=== PATIENT | female | born 1970 | race Caucasian/White ===

== ENCOUNTER → 2017-01-21 | Outpatient (CLI) | payer OTHER ==
--- NOTE | 2017-01-22 09:26 | MM ---
Reason for exam: screening (asymptomatic). Last mammogram was performed 2 years and 5 months ago. History: Family history of breast cancer in maternal grandmother, breast cancer in paternal grandmother, and breast cancer in sister at age 42. Physical Findings: A clinical breast exam by your physician is recommended on an annual basis and results should be correlated with mammographic findings. MG Screening Mammo w CAD Bilateral CC and MLO view(s) were taken. Prior study comparison: August 23, 2014, bilateral MG diagnostic mammo w CAD [facility]. February 06, 2014, left breast MG diagnostic mammo LT w CAD. The breast tissue is heterogeneously dense. This may lower the sensitivity of mammography. No suspicious abnormality. No significant changes when compared with prior studies. ASSESSMENT: Benign, BI-RAD 2 RECOMMENDATION: Routine screening mammogram of both breasts in 1 year.
== END | disposition home or self-care (01) ==
LOC: RADMAMWWP 06:57
PROVIDERS: ATTEND Family Medicine
DX: Z12.31 Encounter for screening mammogram for malignant neoplasm of breast (principal); Z80.3 Family history of malignant neoplasm of breast

== ENCOUNTER → 2017-02-16 | Outpatient (CLI) | payer OTHER ==
--- NOTE | 2017-02-16 16:11 | CT ---
EXAMINATION TYPE: CT abdomen pelvis wo con DATE OF EXAM: 02/16/2017 COMPARISON: NONE HISTORY: ab distention CT DLP: 1120 mGycm Automated exposure control for dose reduction was used. TECHNIQUE: Helical acquisition of images was performed from the lung bases through the pelvis. FINDINGS: Evaluation of the hollow and solid viscera are limited by lack of intravenous and oral cont rast. LUNG BASES: Minimal bibasilar subsegmental dependent atelectasis is seen. LIVER/GB: There is diffuse hypoattenuation of the hepatic parenchyma approaching criteria for hepatic steatosis, however the liver parenchyma does not yet meet criteria for hepatic steatosis. No intrahe patic biliary ductal dilatation is present. PANCREAS: No significant abnormality is seen. No ductal dilatation. SPLEEN: No significant abnormality is seen. ADRENALS: Adrenal glands are symmetric and maintained adreniform shape without measurable nodule. KIDNEYS: No radiopaque calculi are seen and no hydronephrosis is present. FREE AIR: No free air is visualized ADENOPATHY: None visualized OSSEOUS STRUCTURES: Osseous structures appear intact. BOWEL: No significant abnormality is seen. Small paraesophageal lymph nodes are seen measuring up to 7 mm. High density material is seen adjacent to the esophagus and could be related to inspissated de bris within distal esophageal pulsion diverticula versus calcified adjacent lymph nodes. IMPRESSION: 1. DECOMPRESSION OF THE DISTAL ESOPHAGUS WITH HIGH DENSITY MATERIAL SEEN EITHER ADJACENT TO THE ESOPH PAULO OR LOCATED WITHIN ESOPHAGEAL POSTERIOR DIVERTICULUM. DIRECT VISUALIZATION COULD BE PERFORMED FOR FURTHER EVALUATION IF CLINICALLY INDICATED. 2. SURGICAL ABSENCE OF THE GALLBLADDER. 3. NO ACUTE INTRA-ABDOMINAL PROCESS.
== END | disposition home or self-care (01) ==
LOC: RADCTMAIN 15:40
PROVIDERS: ATTEND Family Medicine
DX: K22.5 Diverticulum of esophagus, acquired (principal); Z90.49 Acquired absence of other specified parts of digestive tract
CPT/HCPCS: 74176

== ENCOUNTER 2017-03-25 09:25 | Day surgery (SDC) | payer OTHER ==
[2017-03-24 08:21] VITALS: BMI 33.6
[~2017-03-25 09:25] MED LIST: LACTATED RINGERS 1,000 ML IV SCH
[2017-03-25 09:41] VITALS: RESP 16; TEMP 97.1
[2017-03-25] MEDS ORDERED: LIDOCAINE 1% 20 ML VIAL (10MG/ML) FOR IV START INTRADERMA ONE (09:41)
[2017-03-25] MEDS ORDERED: PROPOFOL 10 MG/ML 20 ML VIAL IV ONE (10:02)
[2017-03-25] MEDS ORDERED: LIDOCAINE 1% INJ 10MG/ML (20 ML MDV) ONE (10:02)
--- NOTE | 2017-03-25 10:15 | P.OP ---
Date of Procedure: 03/25/17 Preoperative Diagnosis: Gastroesophageal reflux disease Postoperative Diagnosis: Same Procedure(s) Performed: Esophagogastroduodenoscopy with random antrum biopsy Anesthesia: MAC Surgeon: Kalina Bee Pathology: other Condition: stable Disposition: PACU Indications for Procedure: 47 years old female presents with reflux symptoms. Informed consent obtained and patient elected to undergo EGD with possible biopsy. Operative Findings: Mild gastritis Description of Procedure: A timeout was performed to verify the correct patient and correct procedure. Patient was on continuous vitals and pulse ox monitoring throughout the procedure. She was placed in lateral decubitus position and an oral bite block was inserted. A well-lubricated Olympus upper endoscope was passed orally. The esophagus was intubated without difficulty. The vocal cords were visualised and protected at all times. The endoscope was passed beyond the pylorus into the first and second portion of the duodenum. No abnormality was noted in the duodenum mucosa. Two random biopsies were taken from the gastric antrum using cold biopsy forceps. The scope was then retroflexed. No hiatal hernia. No mass, active ulcer or bleeding stigmata noted within the gastric lumen. Mild diffuse gastritis The GE junction is measured at 38 cm from the incisors . No evidence of reflux esophagitis. The endoscope was gradually withdrawn. No abnormality identified in the esophagus. Patient tolerated the procedure well and was taken to post anesthesia care unit in stable condition. FINAL DIAGNOSIS: Mild diffuse gastritis SPECIMEN: Antral biopsy RECOMMENDATION: 1. Avoid NSAIDs 2. If persistent reflux symptoms, consider 24 hr esophageal manometry and motility test Final Pathologic Diagnosis GASTRIC ANTRUM, BIOPSY: MILD CHRONIC GASTRITIS. IMMUNOPEROXIDASE STAIN NEGATIVE FOR HELICOBACTER PYLORI ORGANISMS (CONTROLS APPROPRIATE).
[2017-03-25 10:52] VITALS: BP 132/65; PULSE 60
== END 2017-03-25 11:05 | disposition home or self-care (01) ==
LOC: ORWHC2ENDO 09:25
PROVIDERS: ATTEND Surgery
DX: K21.9 Gastro-esophageal reflux disease without esophagitis (principal); K29.50 Unspecified chronic gastritis without bleeding; K58.9 Irritable bowel syndrome, unspecified; I10 Essential (primary) hypertension; F41.9 Anxiety disorder, unspecified; G25.81 Restless legs syndrome; Z91.048 Other nonmedicinal substance allergy status; Z79.1 Long term (current) use of non-steroidal anti-inflammatories (NSAID); Z79.899 Other long term (current) drug therapy; Z87.891 Personal history of nicotine dependence; Z98.51 Tubal ligation status; Z80.3 Family history of malignant neoplasm of breast
CPT/HCPCS: 43239 ×2; 81025; 88305; 88342; J2001; J2704

== ENCOUNTER → 2018-04-19 | Outpatient (CLI) | payer OTHER ==
--- NOTE | 2018-04-21 11:00 | MM ---
Reason for exam: screening (asymptomatic). Last mammogram was performed 1 year and 3 months ago. History: Family history of breast cancer in maternal grandmother, breast cancer in paternal grandmother, and breast cancer in sister at age 42. Physical Findings: A clinical breast exam by your physician is recommended on an annual basis and results should be correlated with mammographic findings. MG Screening Mammo w CAD Bilateral CC and MLO view(s) were taken. Prior study comparison: January 21, 2017, bilateral MG screening mammo w CAD. August 23, 2014, bilateral MG diagnostic mammo w CAD [facility]. The breast tissue is heterogeneously dense. This may lower the sensitivity of mammography. No significant changes when compared with prior studies. ASSESSMENT: Negative, BI-RAD 1 RECOMMENDATION: Routine screening mammogram of both breasts in 1 year.
== END | disposition home or self-care (01) ==
LOC: RADMAMWWP 14:51
DX: Z12.31 Encounter for screening mammogram for malignant neoplasm of breast (principal)
CPT/HCPCS: 77067

== ENCOUNTER → 2019-12-15 | Outpatient (CLI) | payer OTHER ==
--- NOTE | 2019-12-15 12:51 | CONS ---
CONSULTATION DATE OF SERVICE: 12/15/2019. A 49-year-old lady who has been evaluated in the [facility] for multiple awakenings from sleep and significant excessive daytime sleep. HISTORY OF PRESENT ILLNESS/SLEEP-WAKE EVALUATION: Patient's usual sleep schedule from 9-12 midnight until 730 - 10:00 am. She does have problems with falling asleep, has TV set in bedroom. She sleeps on the back, on side position positions by herself, sometimes wakes up from snoring. Patient wakes up from sleep up to 8 times with up to 4 episodes of nocturia at night. She has episodes of restless legs, grinding teeth, panic attack. In the morning patient wakes up tired, has trouble to pay attention, falling asleep during the day, worries about her sleep, has problems with memory, concentration, irritability, anxiety, claustrophobia. Occasionally, she takes naps and she may have vivid dreams during naps. She may start to see her dreams while falling asleep at night, right after falling asleep. She also may have episodes of some weakness in the body during strong emotions including laughing during the daytime, which may indicate possibility of cataplexy. [place] Sleepiness Scale is in extremely high range of 19. PAST MEDICAL HISTORY: Positive for post traumatic stress disorder, neck problems. PAST SURGICAL HISTORY: Neck fusion, appendectomy, tubal ligation. SOCIAL HISTORY: Smoking history in the past for 20 years 2 cigarettes a day; quit about 10 years ago. Alcohol consumption occasional. FAMILY HISTORY: Hypertension, heart problems, hyperlipidemia, arthritis, sleep apnea, pneumonia, cancer, thyroid problems, diabetes, restless legs. REVIEW OF SYSTEMS: Restless leg symptoms, multiple awakenings from sleep, sleepiness during the day, episodes of panic attacks, anxiety. During physical exam, lady without distress, BP 119/74, HR 70, RR 16, height 5, 7-1/2, weight 235.6, temperature 98.3, oxygen saturation at room air 97%. OROPHARYNX: Extremely low position of soft palate, Mallampati IV, wide neck 16 inches in circumference/ ABDOMEN: Obese. NECK: Supple, no JVD. Thyroid is not palpable. LUNGS: Clear to percussion and to auscultation. Good air exchange. No wheezing or rhonchi. HEART: S1, S2 regular. No murmurs, gallops, or rubs. EXTREMITIES: No clubbing or cyanosis. SUPERVISORY CIVIL ENGINEER: Awake, alert, and oriented X3. Cranial nerves 2 to 7 intact. There is no fasciculation or atrophy. noted. No focal deficits observed. IMPRESSION: 1. Snoring, multiple awakenings from sleep, extremely low position of soft palate. Wide neck. Obstructive sleep apnea-hypopnea syndrome. 2. Significant excessive daytime sleepiness with [place] Sleepiness Scale 19. Positive history of hypnagogic hallucinations and questionable cataplexy dictating necessity to include narcolepsy in the differential diagnosis. 3. Obesity, body mass index 36.2. 4. Status post neck fusion. 5. History of posttraumatic stress disorder. 6. Status post appendectomy. 7. Status post tubal ligation. PLAN: 1. Polysomnography for evaluation of patient's breathing during sleep. 2. CPAP/BiPAP titration if sleep study confirms obstructive sleep apnea-hypopnea syndrome. 3. Preferable position during sleep on the side. 4. No driving if patient feels any sleepiness. 5. Multiple sleep latency testing. Sleep study negative for obstructive sleep apnea- hypopnea syndrome. 6. I will see patient for follow up visit to explain results of testing and following plan. Thank you very much for referring this patient for consultation. Sincerely, Jesus Castro MD, PhD, FAASM Diplomat of [place] [employer] [place] [employer] Specialist of [facility] [place] MMODL / CONNERN: [id number] /
== END | disposition home or self-care (01) ==
LOC: SLEEP 11:11
PROVIDERS: ATTEND Internal Medicine
DX: G47.33 Obstructive sleep apnea (adult) (pediatric) (principal); E66.9 Obesity, unspecified; Z68.36 Body mass index [BMI] 36.0-36.9, adult; Z98.1 Arthrodesis status; Z90.49 Acquired absence of other specified parts of digestive tract; Z86.59 Personal history of other mental and behavioral disorders; Z98.51 Tubal ligation status
CPT/HCPCS: 99211

== ENCOUNTER → 2020-10-25 | Outpatient (CLI) | payer OTHER ==
--- NOTE | 2020-10-29 08:43 | MM ---
Reason for exam: screening (asymptomatic). Last mammogram was performed 2 years and 6 months ago. History: Family history of breast cancer in maternal grandmother, breast cancer in paternal grandmother, and breast cancer in sister at age 42. Physical Findings: A clinical breast exam by your physician is recommended on an annual basis and results should be correlated with mammographic findings. MG Screening Mammo w CAD Bilateral CC and MLO view(s) were taken. Prior study comparison: April 19, 2018, bilateral MG screening mammo w CAD. January 21, 2017, bilateral MG screening mammo w CAD. The breast tissue is heterogeneously dense. This may lower the sensitivity of mammography. No significant changes when compared with prior studies. ASSESSMENT: Benign, BI-RAD 2 RECOMMENDATION: Routine screening mammogram of both breasts in 1 year.
== END | disposition home or self-care (01) ==
LOC: RADMAMWWP 12:47
PROVIDERS: ATTEND Nurse Practitioner Acute Care
DX: Z12.31 Encounter for screening mammogram for malignant neoplasm of breast (principal); Z80.3 Family history of malignant neoplasm of breast
CPT/HCPCS: 77067

== ENCOUNTER → 2021-10-28 | Outpatient (CLI) | payer OTHER ==
--- NOTE | 2021-10-29 14:42 | MM ---
Reason for Exam: Screening (asymptomatic). Last screening mammogram was performed 12 month(s) ago. Patient History: Menarche at age 15. First Full-Term at age 21. Paternal grandmother had breast cancer. Maternal grandmother had breast cancer. Sister had breast cancer, age 42. Last menstrual period: 10/09/2021 Risk Values: Andie 5 year model risk: 1.7%. NCI Lifetime model risk: 15.1%. Prior Study Comparison: 01/21/2017 Bilateral Screening Mammogram, [facility]. 04/19/2018 Bilateral Screening Mammogram, [facility]. 10/25/2020 Bilateral Screening Mammogram, [facility]. Tissue Density: The breast tissue is heterogeneously dense. This may lower the sensitivity of mammography. Findings: Analyzed By CAD. No suspicious groups of microcalcifications, spiculated or lobular masses, architectural distortion or other secondary signs of malignancy are mammographically apparent. Overall Assessment: Benign, BI-RAD 2 Management: Screening Mammogram of both breasts in 1 year. A negative mammogram report should not preclude additional follow up of suspicious palpable abnormalities. Patient should continue monthly self breast exam. A clinical breast exam by your physician is recommended on an annual basis and results should be correlated with mammographic findings. Electronically signed and approved by: Maxx Horne D.O. Radiologis
== END | disposition home or self-care (01) ==
LOC: RADMAMWWP 14:33
DX: Z12.31 Encounter for screening mammogram for malignant neoplasm of breast (principal); Z78.0 Asymptomatic menopausal state; Z80.3 Family history of malignant neoplasm of breast
CPT/HCPCS: 77067

== ENCOUNTER → 2021-11-20 | Outpatient (CLI) | payer OTHER ==
[2021-11-20 19:41] LABS: Basophils # (A) 0.07 X 10*3/uL (0.00-0.10); Eosinophils % (A) 2.9 %; HCT 40.2 % (37.2-46.3); HGB 13.1 g/dL (12.0-15.0); Immature Grans, Automated 0.3 %; Lymphocytes # (A) 2.17 X 10*3/uL (0.90-5.00); Lymphocytes % (A) 31.4 %; MCH 28.7 pg (27.0-32.0); MCHC 32.6 g/dL (32.0-37.0); MCV 88.2 fL (80.0-97.0); Mean Platelet Volume 9.4 fL (9.5-12.2); Monocytes # (A) 0.59 X 10*3/uL (0.20-1.00); Monocytes % (A) 8.6 %; NRBC Per 100 WBC 0 /100 WBCS (0.0-0.0); Neutrophils # (A) 3.85 X 10*3/uL (1.80-7.70); Neutrophils % (A) 55.8 %; Platelet Count 338 X 10*3/uL (140-440); RBC 4.56 X 10*6/uL (4.10-5.20); RDW 12.6 % (11.5-14.5)
== END | disposition home or self-care (01) ==
LOC: LABPAT 10:37
PROVIDERS: ATTEND Obstetrics & Gynecology Obstetrics
DX: Z01.812 Encounter for preprocedural laboratory examination (principal); N92.0 Excessive and frequent menstruation with regular cycle; D25.9 Leiomyoma of uterus, unspecified
CPT/HCPCS: 85025

== ENCOUNTER 2021-12-02 06:13 | Day surgery (SDC) | payer OTHER ==
[2021-11-28 13:02] VITALS: BMI 33.2
[~2021-12-02 06:13] MED LIST changes: -LACTATED RINGERS 1,000 ML IV SCH; +Pre Op ABX Message 1 EACH MISC MISCELLANE ONE
[2021-12-02] MEDS ORDERED: HYDROmorphone 0.5 MG/0.5 ML SYRINGE IVP PRN (06:21)
[2021-12-02] MEDS ORDERED: LIDOCAINE 1% (10MG/ML) FOR IV START INTRADERMA PRN (06:21)
[2021-12-02] MEDS ORDERED: DEXAMETHASONE SOD PHOSPHATE 4 MG/ML 1 ML VIAL IV ONE (06:21)
[2021-12-02] MEDS ORDERED: LACTATED RINGERS 1,000 ML IV SCH (06:21)
[2021-12-02] MEDS ORDERED: ONDANSETRON 4 MG/2 ML VIAL IVP ONE (06:21)
[2021-12-02] MEDS ORDERED: SCOPOLAMINE 1 MG/72 HR PATCH TRANSDERM ONE (06:21)
[2021-12-02] MEDS ORDERED: LIDOCAINE 2% INJ 20 MG/ML (2 ML VIAL) ONE (07:24)
[2021-12-02] MEDS ORDERED: PROPOFOL 10 MG/ML 20 ML VIAL IV ONE (07:24)
[2021-12-02] MEDS ORDERED: MIDAZOLAM 2 MG/2 ML VIAL ONE (07:24)
[2021-12-02] MEDS ORDERED: fentaNYL (PF) 50 MCG/ML 2 ML AMP ONE (07:24)
[2021-12-02] MEDS ORDERED: KETOROLAC 15 MG/ML 1 ML VIAL ONE (07:24)
--- NOTE | 2021-12-02 07:36 | P.HPOB ---
History of Present Illness H&P Date: 12/02/21 Chief Complaint: Menorrhagia, uterine fibroid This is a 51-year-old non- patient that presents for endometrial ablation secondary to menorrhagia. Patient states menstrual cycles are regular with heavy flow. Ultrasound performed revealed a moderately enlarged uterus at 9.7 cm questionable arcuate in nature with a 2 cm anterior fibroid. Patient is desirous of endometrial ablation secondary to heavy menstrual bleeding. Review of Systems Constitutional: Denies chills, Denies fatigue, Denies fever Ears, nose, mouth and throat: Denies headache Cardiovascular: Denies leg edema Respiratory: Denies dyspnea Gastrointestinal: Denies nausea, Denies vomiting Genitourinary: Denies Past Medical History Past Medical History: Neurologic Disorder Additional Past Medical History / Comment(s): restless leg syndrome,migraines, hx neck injury, IBS, lower back pain, seasonal allergies, IRREGULAR MENSES History of Any Multi-Drug Resistant Organisms: None Reported Past Surgical History: Appendectomy, Cholecystectomy, Tubal Ligation Additional Past Surgical History / Comment(s): corrective vision mayur eye surgery, neck sx Past Anesthesia/Blood Transfusion Reactions: Motion Sickness Smoking Status: Former smoker - Past Family History Sister(s) Family Medical History: Cancer Additional Family Medical History / Comment(s): breast Medications and Allergies Home Medications Medication Instructions Recorded Confirmed Type Ibuprofen [Motrin] 800 mg PO DAILY PRN 09/14/13 11/28/21 History Acetaminophen [Tylenol 8 Hour] 650 mg PO DAILY PRN 11/28/21 12/02/21 History methocarbamoL [Methocarbamol] 750 mg PO DAILY PRN 11/28/21 12/02/21 History miSOPROStoL [Cytotec] 200 mcg PO ONCE 11/28/21 12/02/21 History Allergies Allergy/AdvReac Type Severity Reaction Status Date / Time adhesive tape AdvReac Rash/Hives Verified 12/02/21 06:42 Exam Osteopathic Statement: *. No significant issues noted on an osteopathic structural exam other than those noted in the History and Physical/Consult. Vital Signs Temp Pulse Resp BP Pulse Ox 12/02/21 06:47 97.3 F L 60 16 114/77 97 Intake and Output 12/01/21 12/02/21 12/02/21 22:59 06:59 14:59 Intake Total 100 Balance 100 Intake: IV 100 Other: Weight 97.3 kg Targeted physical exam is performed on this date in general this a well- nourished well-developed non female in no acute distress breathing is noted to nonlabored, heart has regular rate and rhythm, abdomen is soft and nontender. On genitourinary exam external genitalia is normal in appearance no inflammatory lesions are appreciated vagina ispink and well rugated, bladder is nontender, cervix is healthy and no lesions are appreciated. Uterus is mobile and midline, there is no adnexal masses. Assessment and Plan (1) Menorrhagia Current Visit: Yes Status: Acute Code(s): N92.0 - EXCESSIVE AND FREQUENT MENSTRUATION WITH REGULAR CYCLE SNOMED Code(s): 684184770 (2) Uterine fibroid Current Visit: Yes Status: Acute Code(s): D25.9 - LEIOMYOMA OF UTERUS, UNSPECIFIED SNOMED Code(s): 16512740 Plan: This is a 51-year-old female that presents for hysteroscopy, dilation curettage and endometrial ablation. Patient is counseled on risks of surgery including but not limited to infection, bleeding, uterine perforation, failure of the procedure. Patient states understanding. We'll proceed hysteroscopy, dilation and curettage with endometrial ablation, NovaSure.
--- NOTE | 2021-12-02 07:59 | P.OP ---
Date of Procedure: 12/02/21 Preoperative Diagnosis: Menorrhagia, uterine fibroid Postoperative Diagnosis: Same Procedure(s) Performed: Hysteroscopy, dilation and curettage, endometrial ablation, NovaSure Anesthesia: MAC Surgeon: Mere Rayo Estimated Blood Loss (ml): 5 IV fluids (ml): 400 Urine output (ml): 100 Pathology: other (Endometrial curettings) Condition: stable Disposition: PACU Indications for Procedure: Heavy menstrual bleeding Operative Findings: Normal-appearing uterine cavity, endometrial cavity measuring 9 cm in length, NovaSure device inserted a length of 5, width of 3.9 power of 107 for a total cycle time of 62 seconds. Description of Procedure: Patient was taken back to the operating suite where general anesthesia was obtained without difficulty by the anesthesia department. She was prepped and draped in the normal sterile fashion in the dorsal lithotomy position. A weighted speculum posterior vaginal vault. A red rubber catheter was used to drain the bladder clear yellow urine. The anterior lip of the cervix was visualized and grasped with a single-tooth tenaculum. The endocervical canal was then serially dilated. The hysteroscope was then placed through the cervix and the normal-appearing endometrial cavity was appreciated menstrual blood was noted with minimal visualization. At this time the hysteroscope was removed and a sharp curettage was performed. A moderate amount of tissue was obtained and this was sent to pathology for analysis. At this time the NovaSure was opened without difficulty, it was inserted into the uterus given a uterine length of 5, width of 3.9, power of 107, total cycle time of 62 seconds. After cavity assessment was passed the cycle was allowed to complete. After the cycle was complete the NovaSure was removed without difficulty. The single-tooth tenaculum was taken off of the anterior lip of the cervix hemostasis was appreciated. Patient tolerated procedure well and was taken the recovery room awake in stable condition. All counts were correct 2 at the end the procedure.
[2021-12-02 08:15] VITALS: TEMP 97.1
[2021-12-02] MEDS ORDERED: HYDROmorphone 0.5 MG/0.5 ML SYRINGE IVP ONE (08:21)
[2021-12-02 08:22] VITALS: RESP 18
[2021-12-02 09:16] VITALS: PULSE 60
[2021-12-02 09:37] VITALS: BP 110/74
== END 2021-12-02 09:48 | disposition home or self-care (01) ==
LOC: OR 06:13
PROVIDERS: ATTEND Obstetrics & Gynecology Obstetrics
DX: N92.0 Excessive and frequent menstruation with regular cycle (principal); D25.9 Leiomyoma of uterus, unspecified; G25.81 Restless legs syndrome; G43.909 Migraine, unspecified, not intractable, without status migrainosus; K58.9 Irritable bowel syndrome, unspecified; G89.29 Other chronic pain; M54.50 Low back pain, unspecified; J30.2 Other seasonal allergic rhinitis; Z87.891 Personal history of nicotine dependence; Z90.49 Acquired absence of other specified parts of digestive tract; Z98.51 Tubal ligation status; Z98.890 Other specified postprocedural states; Z91.09 Other allergy status, other than to drugs and biological substances; Z80.3 Family history of malignant neoplasm of breast
CPT/HCPCS: 81025; 88305; 58563; J2250; J1100; J2405; J3010; J1885; J2704; J1170; J2001

== ENCOUNTER → 2021-12-16 | Outpatient (CLI) | payer OTHER ==
--- NOTE | 2021-12-16 21:24 | MR ---
EXAMINATION TYPE: MR lumbar spine wo con DATE OF EXAM: 12/16/2021 COMPARISON: Prior MRI of the lumbar spine June 27, 2019 HISTORY: Chronic lower back pain, radiates into both legs. TECHNIQUE: Multiplanar, multisequence imaging of the lumbar spine is performed without IV contrast. FINDINGS: Sagittal images of the lumbar spine show vertebral body heights to remain satisfactory. Mul tilevel disc desiccation with relative sparing of the L5-S1 level is redemonstrated. Disc space heigh ts fairly well maintained. The conus medullaris remains normal in position and signal ending at L1-L 2 disc space level. Small osseous hemangioma L4 level sagittal image 13 redemonstrated. Axial images show T12-L1 level to remain within normal limits. Axial images L1-L2 level demonstrate mild broad-based posterior disc protrusion minimally effacing th e anterior thecal sac axial image 25. No significant change from prior. Axial images at L2-L3 show new mild broad disc bulge minimally effaces the anterior thecal sac. Paten t bilateral neural foramina. The L3-L4 levels remains within normal limits. Axial images at L4-L5 levels show moderate to advanced facet degenerative changes and ligamentous fla vum hypertrophy effacing posterior lateral thecal sac with mild to moderate broad disc bulge mildly e ffaces the anterior thecal sac. Findings progressed from prior study axial image 10 on current study. Mild bilateral anterior inferior neural foraminal narrowing current study. Axial images at L5-S1 level show moderate to advanced facet arthropathy and ligamentum flavum hypertr ophy on current study effacing posterior lateral thecal sac. No significant disc herniation. Bilatera l neural foramina remain patent. No suspicious incidental retroperitoneal findings. IMPRESSION: Some progression in degenerative changes lower lumbar spine from 2020 MRI as detailed abo ve.
== END | disposition home or self-care (01) ==
LOC: RADMRIMAIN 10:27
PROVIDERS: ATTEND Psychiatry & Neurology Neurology
DX: M47.817 Spondylosis without myelopathy or radiculopathy, lumbosacral region (principal); M99.73 Connective tissue and disc stenosis of intervertebral foramina of lumbar region; M51.36 Other intervertebral disc degeneration, lumbar region
CPT/HCPCS: 72148

== ENCOUNTER → 2022-06-05 | Outpatient (CLI) | payer OTHER ==
[2022-06-05 15:04] VITALS: BP 139/79; PULSE 72; RESP 18; TEMP 98.1
--- NOTE | 2022-06-05 15:04 | P.PAINPG ---
PQRS Measure Charge Sheet Comment: HISTORY OF PRESENT ILLNESS: 52 yr old female as a referral from [facility] presents today w severe and chronic LBP secondary to DDD, disc bulges and facet arthropathy without myelopathy for evaluation. Pt states pain level is at 8 /10 in intensity, constant, localized in the lower lumbar spine, throbbing in character without shooting pain. Pain is provoked by standing/ sitting/ driving for periods of 30 min or more. Pain is alleviated by PT x 5 mo which ended in Apr 2022, massages as needed, chiropractic treatments almost monthly as needed, meds (Ibu, Tyl, Flexeril), repositioning and rest. PMH: RLS, Migraine RUIZ, IBS PSH: Appendectomy, Cholecystectomy, Tubal Ligation, Corrective Vision Surgery, Cervical Surgery, D&C/ Ablation SH: Former tobacco user, No ETOH abuse, No illicit drug use FH: Sis- Breast CA All: See list Meds: See list REVIEW OF ORGAN SYSTEMS: CONSTITUTIONAL: No fevers or chills. No recent weight loss. NEUROLOGICAL: + numbness and tingling along the distal extremities. No seizure disorders or headaches. MUSCULOSKELETAL: + pain PSYCHIATRIC: Denies current depression or suicidal thoughts. Physical Examinations : Constitutional : Cooperative , not in acute distress . Neurologic : Cranial nerve II to XII intact. No focal neurological deficits. Psychiatric : alert & oriented x 3. Matching mood & appropriate affect. Judgment & insight intact. Musculoskeletal : Cervical Spine Motor strength in the deltoid and biceps: Normal right side. Normal Left side Motor strength biceps and the wrist extensors: Normal right side . Normal left side Motor strength in the triceps muscle: Normal right side. Normal left side Deep tendon reflexes: Normal at the biceps. Normal at Brachioradialis. Normal at triceps Vertebral body tenderness to deep palpation over Cervical facet loading test: positive bilaterally Spurling test: positive bilaterally Neck distraction test: positive bilaterally Aleyda sign: positive bilaterally Lumbar spine Motor strength lower extremities ,thigh and legs 5/5 Right side , 5/5 Left side Deep tendon reflexes : Normal Knee Jerk. Normal Ankle Jerk Vertebral body tenderness over L4 Lumbar facet Loading Test: positive Right / positive Left Range of motion of the lumbar spine Flexion 30 degrees, extension 10 degrees Straight Leg Raise test: Left/ Right positive Iraj test: positive right / positive left. Severe tenderness over the Sacroiliac joint on the Right / Left sides Fidellen test: positive bilaterally Seated flexion test: positive bilaterally. Sacral spine : Severe tenderness over the Sacroiliac joint: right side / left side Range of motion: Flexion of the lumbar spine <60 degrees Range of motion: Extension of the lumbar spine <20 degrees Gaenslen's Test positive Sanjay's Test positive Iraj test: positive right side / left side Thigh Thrust Test Sacral Thrust Test Imaging: MRI without contrast of the lumbar spine from 12/16/21 reviewed Assessment/ Plan : Lumbar DDD, Lumbar disc bulges Recommendation of BL TFESI L4-L5 #1. May need a series of injections, up to 3 within a 6 mo period, for optimal pain relief. Risks, benefits of procedure discussed and patient verbalized understanding. Admits to aspirin or anti- coagulant use or medical history of diabetes. Protocol for discontinuation/ continuation of medications obed procedure discussed. All questions answered. I have spent greater than 30 minutes on patient care today. Dr Regalado was available by phone for the evaluation of this patient. The time was used to review the medical records including relevant urine studies and Prescription history (MAPs), review of the available imaging, evaluation and examination of the patient, coordination of care with the medical staff and if applicable referring physicians, as well as creation of the medical record PQRS Narrative: Smoking Status Former smoker Home Medications: Ambulatory Orders Ibuprofen [Motrin] 800 mg PO DAILY PRN 09/14/13 Acetaminophen [Tylenol 8 Hour] 650 mg PO DAILY PRN 11/28/21 methocarbamoL [Methocarbamol] 750 mg PO DAILY PRN 11/28/21 miSOPROStoL [Cytotec] 200 mcg PO ONCE 11/28/21 Controlled Substance Measures - Controlled Substance Measures Is patient prescribed a controlled substance at discharge?: No
== END ==
LOC: PNWHC3 13:38
PROVIDERS: ATTEND Specialist
DX: M51.16 Intervertebral disc disorders with radiculopathy, lumbar region (principal); M43.16 Spondylolisthesis, lumbar region; E11.9 Type 2 diabetes mellitus without complications; Z91.048 Other nonmedicinal substance allergy status; Z87.891 Personal history of nicotine dependence
CPT/HCPCS: 99211

== ENCOUNTER 2022-08-22 06:05 | Day surgery (SDC) | payer MEDICARE, OTHER ==
[2022-08-19 15:23] VITALS: BMI 33.3
[2022-08-22] MEDS ORDERED: LIDOCAINE 1% (10MG/ML) FOR IV START INTRADERMA PRN (06:13)
[2022-08-22] MEDS ORDERED: LACTATED RINGERS 1,000 ML IV SCH (06:13)
[2022-08-22] MEDS ORDERED: ROPIVACAINE 5 MG/ML 20 ML AMPULE ONE (06:55)
[2022-08-22] MEDS ORDERED: methylPREDNISolone ACETATE 40 MG/ML 1 ML VIAL ONE (06:55)
[2022-08-22] MEDS ORDERED: MIDAZOLAM 2 MG/2 ML VIAL ONE (06:57)
[2022-08-22] MEDS ORDERED: fentaNYL (PF) 50 MCG/ML 2 ML AMP ONE (06:57)
--- NOTE | 2022-08-22 07:28 | P.PCN ---
Date of Procedure: 08/22/22 Procedure(s) Performed: PREOPERATIVE DIAGNOSIS: 1-Lumbar Spondylosis with Facet Arthropathy without myelopathy. 2- Lumber degenerative disc disease. POSTOPERATIVE DIAGNOSIS: 1- Lumbar Spondylosis with Facet Arthropathy without myelopathy. 2- Lumber degenerative disc disease. PROCEDURES : Bilateral Radiofrequency thermocoagulation, L3 , L4 , and L5 medial branch, with fluoroscopic guidance (fluoroscopy images available in the radiology department) ( to denervate the facet joint at bilateral L4-5 ,and L5-S1 levels ). ANESTHESIA: Monitored anesthesia care as per anesthesia department . EBL: Minimal PROCEDURE INDICATION: The patient with low back pain secondary to lumbar facet arthropathy who had more than 50% relief of her pain with previous diagnostic lumbar medial branch block with bupivacaine. PROCEDURE DESCRIPTION / TECHNIQUE: The patient was seen and identified in the preoperative area. Risks, benefits, complications, including but not limited to risk of infection ,bleeding , allergic reactions to the medications and no complete pain releife , and alternatives were discussed with the patient, the patient agreed to proceed with the procedure and signed the consent. IV was started. Vital signs remained stable throughout the procedure. Patient was taken to the OR and time out was completed. The patient was placed in the prone position on the procedure table. The lumber area was prepped and draped in the usual sterile fashion. . Vital signs were closely monitored during the procedure .IV sedation was used during the procedure to decrease patients anxiety. Using AP and then oblique fluoroscopy, the ``eye of the Cedric dog co rresponding to the connection between the superior and transverse articular processes of right L3, L4, and L5 were identified, marked, and localized with 1% lidocaine. Subsequently, a 18 -qr radiofrequency cannula with a 10- mm active tip was advanced guided by fluoroscopy to each of the``eyes of the Cedric dog at right L3, L4, and L5. Each site then underwent sensory testing at 50 Hz and 0 to 1 volt and motor testing at 2.5 Hz and 0 to 3 volt with local stimulation, but no radicular symptoms down the legs. Thereafter each sites underwent radiofrequency thermocoagulation at 80 degrees celsius for 90 seconds after injecting 0.5 ml of PF Ropivacaine 1ml, then after the thermocoagulation done , 1 ml of the block solution containing Depo-Medrol 20 mg and 3 ml of Ropivacaine 0.5% was injected at the right L3 , L4 , and L5 , levels after negative aspiration of CSF and blood and with no paresthesias. Cannulas were retracted while injecting lidocaine 1% until the needle is out. The same procedure was repeated at the level of Left L3, L4, and L5 levels. At the end of the procedure, the skin was cleansed and bandages were applied. COMPLICATIONS: No acute complications. DISPOSITION / PLANS: The patient was placed in a supine position and transferred to the recovery area in a stable condition for observation and was discharged from the recovery room after meeting discharge criteria. Home discharge instructions given to the patient by the staff. The patient was reexamined prior to discharge. The patient will schedule a follow up in the clinic in 2-4 weeks.
[2022-08-22] MEDS ORDERED: IV FLUID CONTINUATION 600 ML IV ONE (07:32)
--- NOTE | 2022-08-22 07:43 | FL ---
Fluoroscopy INDICATION: Pain FINDINGS: Fluoroscopy time: 42.9 seconds. DAP: 0.93769 mGycm^2 Images obtained: 7. IMPRESSIONS: 1. Documentation of fluoroscopy.
[2022-08-22 08:08] VITALS: BP 132/73; PULSE 57; RESP 16
== END 2022-08-22 08:06 | disposition home or self-care (01) ==
LOC: ORPAIN 06:05
PROVIDERS: ATTEND Specialist
DX: M51.36 Other intervertebral disc degeneration, lumbar region (principal); M47.816 Spondylosis without myelopathy or radiculopathy, lumbar region; G43.909 Migraine, unspecified, not intractable, without status migrainosus; Z87.891 Personal history of nicotine dependence; Z79.899 Other long term (current) drug therapy; Z91.048 Other nonmedicinal substance allergy status
CPT/HCPCS: 81025; 64635; 64636 ×2; J2250; J1030; J3010; J2795

== ENCOUNTER → 2022-09-15 | Outpatient (CLI) | payer OTHER ==
[2022-09-15 13:03] VITALS: BP 121/71; PULSE 69; RESP 18; TEMP 98.2
--- NOTE | 2022-09-15 13:36 | P.PAINPG ---
PQRS Measure Charge Sheet Comment: A 52 yr old female with a history of severe and chronic LBP secondary to lumbar DDD and spondylosis with facet arthropathy without myelopathy presents today for evaluation s/p BL RFA L4-L5, L5-S1. Pt states she experienced 50 % pain relief x 3 wks s/p procedure. Pain level is provoked at 9/10 in intensity, constant, localized in the lumbar spine, achy in character w/o shooting pain. Pain is provoked by standing, lifting, bending. Pain is alleviated with PT x 6 wks which ended in Aug 2022, massages monthly which she is currently in, chiropractic treatments Q3 wks, heat, medications, repositioning and rest. Interventional pain procedures completed include BL RFA L3-L5 Patient is currently on Tyl, Ibu Patient denies any side effects of the medication(s), denies excessive drowsiness or sleepiness, denies suicidal ideation and reports that the current pain medication is helping to control the pain and improve activities of daily living. Patient denies any motor or sensory deficits. Patient denies any fever or night sweats, denies any change in the bowel movements or urination. Physical Examination: -Constitutional: Cooperative. Not in acute distress . - Neurologic: Cranial nerve II to XII intact. No focal neurological deficits. - Psychatric: Alert & oriented x 3. Matching mood & appropriate affect. Judgment and insight intact. - Musculoskeletal: Cervical spine: Muscle bulk/ tone/ strength in the bilateral upper extremities normal Vertebral body tenderness to palpation over Spurling test positive Distraction test positive Facet loading test positive TTP Thoracic spine Muscle bulk / tone/ strength in the bilateral paraspinal muscles normal Vertebral body tender to palpation over Facet loading test positive TTP Lumbar spine: Motor bulk/ tone/ strength lower extremities , thigh and legs : 5/5 Deep tendon reflexes : Normal Knee Jerk. Normal Ankle Jerk . Vertebral body tenderness to palpation over BL paraspinal TTP over L4, L5, S1 muscle groups Lumbar Facet Loading Test positive Straight Leg Raise: positive at 30 degrees right side/ left side Gaenslen's Test positive Sacral spine : Severe tenderness over the Sacroiliac joint: right side / left side Range of motion: Flexion of the lumbar spine <60 degrees Range of motion: Extension of the lumbar spine <20 degrees Gaenslen's Test positive right side / left side Iraj test: positive right side / left side Thigh Thrust Test positive right side / left side Sacral Thrust Test positive right side / left side Assessment and plan: Chronic LBP secondary to lumbar DDD, spondylosis with facet arthropathy without myelopathy Pt will manage residual pain at home and may return to clinic on an as needed basis. All questions answered. I have spent less than 30 minutes on patient care today. Dr Regalado was available by phone for the evaluation of this patient. The time was used to review the medical records including relevant urine studies and Prescription history (MAPs), review of the available imaging, evaluation and examination of the patient, coordination of care with the medical staff and if applicable referring physicians, as well as creation of the medical record PQRS Narrative: Smoking Status Former smoker Hx Alcohol Use (MH) No Home Medications: Ambulatory Orders Acetaminophen Tab [Tylenol Tab] 1,000 mg PO DIRECTED PRN 06/20/22 Cannabidiol (Cbd) [Epidiolex] 1 dose PO DIRECTED PRN 06/20/22 Ibuprofen [Motrin] 600 mg PO Q8HR PRN 06/20/22 Lipoic Acid 600 mg PO DAILY 06/20/22 Niacin 500 mg PO DAILY 06/20/22 SUMAtriptan succinate [Imitrex] 100 mg PO DIRECTED PRN 06/20/22 Vitamin D (Unknown Dose) 1 dose PO WEEKLY 06/20/22 Controlled Substance Measures - Controlled Substance Measures Is patient prescribed a controlled substance at discharge?: No
== END ==
LOC: PNWHC3 12:19
PROVIDERS: ATTEND Specialist
DX: M51.37 Other intervertebral disc degeneration, lumbosacral region (principal); M47.817 Spondylosis without myelopathy or radiculopathy, lumbosacral region; G89.29 Other chronic pain; Z87.891 Personal history of nicotine dependence; Z91.048 Other nonmedicinal substance allergy status
CPT/HCPCS: 99211

== ENCOUNTER → 2022-12-02 | Outpatient (CLI) | payer OTHER ==
--- NOTE | 2022-12-03 07:31 | MM ---
Reason for Exam: Screening (asymptomatic). Last mammogram was performed 1 year(s) and 2 month(s) ago. Patient History: Menarche at age 15. First Full-Term at age 21. Perimenopausal. Paternal grandmother had breast cancer. Maternal grandmother had breast cancer. Sister had breast cancer, age 42. Risk Values: Andie 5 year model risk: 1.8%. NCI Lifetime model risk: 14.9%. Prior Study Comparison: 04/19/2018 Bilateral Screening Mammogram, [facility]. 10/25/2020 Bilateral Screening Mammogram, [facility]. 10/28/2021 Bilateral MG screening mammo w CAD, [facility]. Tissue Density: The breast tissue is heterogeneously dense. This may lower the sensitivity of mammography. Findings: Analyzed By CAD. There is no suspicious group of microcalcifications or new suspicious mass in either breast. Overall Assessment: Negative, BI-RAD 1 Management: Screening Mammogram of both breasts in 1 year. A clinical breast exam by your physician is recommended on an annual basis and results should be correlated with mammographic findings. Note on Andie scores and lifetime risk: 1. A Andie score greater than 3% is considered moderate risk. If this is the case, consider specialist referral to assess eligibility for a risk reducing agent. If overall lifetime risk for the development of breast cancer is 20% or higher, the patient may qualify for future screening with alternating mammogram and breast MRI. Electronically signed and approved by: Zan Christine D.O.
== END | disposition home or self-care (01) ==
LOC: RADMAMWWP 12:57
PROVIDERS: ATTEND Internal Medicine
DX: Z12.31 Encounter for screening mammogram for malignant neoplasm of breast (principal); Z80.3 Family history of malignant neoplasm of breast
CPT/HCPCS: 77067

== ENCOUNTER → 2023-12-08 | Outpatient (CLI) | payer OTHER ==
--- NOTE | 2023-12-31 13:51 | MM ---
Reason for Exam: Screening (asymptomatic). Last screening mammogram was performed 12 month(s) ago. Patient History: Menarche at age 15. First Full-Term at age 21. Perimenopausal. Paternal grandmother had breast cancer under age 50. Maternal grandmother had breast cancer. Sister had breast cancer, age 42. Risk Values: Andie 5 year model risk: 1.8%. NCI Lifetime model risk: 14.6%. Prior Study Comparison: 10/25/2020 Bilateral Screening Mammogram, [facility]. 10/28/2021 Bilateral MG screening mammo w CAD, [facility]. 12/02/2022 Bilateral MG screening mammo w CAD, [facility]. Tissue Density: The breasts are heterogeneously dense, which may obscure small masses. Findings: Analyzed By CAD. Right breast: There is no suspicious group of microcalcifications or new suspicious mass. Left breast: There is no suspicious group of microcalcifications or new suspicious mass. Overall Assessment: Negative, BI-RAD 1 Management: Screening Mammogram of both breasts in [address] [facility] will attempt to contact patient to return for supplemental views and ultrasound if indicated. Patient should continue monthly self-breast exams. A clinical breast exam by your physician is recommended on an annual basis. This exam should not preclude additional follow-up of suspicious palpable abnormalities. Note on Andie scores and lifetime risk: 1. A Andie score greater than 3% is considered moderate risk. If this is the case, consider specialist referral to assess eligibility for a risk reducing agent. 2. If overall lifetime risk for the development of breast cancer is 20% or higher, the patient may qualify for future screening with alternating mammogram and breast MRI. Electronically signed and approved by: Erlin Soto DO
== END | disposition home or self-care (01) ==
LOC: RADMAMWWP 12:27
PROVIDERS: ATTEND General Practice
DX: Z12.31 Encounter for screening mammogram for malignant neoplasm of breast (principal); R92.333 Mammographic heterogeneous density, bilateral breasts; Z80.3 Family history of malignant neoplasm of breast
CPT/HCPCS: 77063; 77067